=== PATIENT | male | born 1975 | race Caucasian/White ===

== ENCOUNTER 2019-04-18 01:24 | Emergency (ER) | payer SELFPAY ==
[~2019-04-18] VITALS: Ht 182 cm; Wt 90.9 kg
[~2019-04-18 01:24] MED LIST: DIAZ-345 PO; DIAZ5SOL3 PO; HUM100VI6 SQ; HYDR-2890 PO; HYDR-2997 PO; INSASP10V SQ; INSU100I14 SQ; INSU100I16 SQ; TRAZ150T42 PO
[2019-04-18] MEDS ORDERED: RT-ALBUTEROL/IPRATROPIUM 3 ML (DUONEB) VIAL ONE (01:25)
[2019-04-18] MEDS ORDERED: RT-ALBUTEROL SULF 2.5 MG/3 ML PRE-MIX VIAL ONE (01:29)
[2019-04-18] MEDS ORDERED: RT-ALBUTEROL SULF 2.5 MG/3 ML PRE-MIX VIAL INH STA (01:32)
[2019-04-18] MEDS ORDERED: LACTATED RINGERS 1,000 ML IV STA (01:33)
[2019-04-18] MEDS ORDERED: RT-IPRATROPIUM (ATROVENT) 0.5MG/2.5ML AMP IH ONE (01:45)
--- NOTE | 2019-04-18 01:49 | ED Respiratory ---
General Chief Complaint: Respiratory Problems Stated Complaint: SOB,WHEEZING Source: patient, family Exam Limitations: no limitations History of Present Illness Date Seen by Provider: Apr 18, 2019 Time Seen by Provider: 01:27 Initial Comments Here with report of shortness of breath and wheezing. Does have asthma and is out of his inhaler. He is trying to get his prescription refilled for the past 2 weeks and that has not been refilled yet. He denies fever or chills. Does have diabetes and states blood sugars running in the 200s. Denies nausea, vomiting or diarrhea. Timing/Duration: week, getting worse Severity: moderate Prior Episodes/Possible Cause: occasional episodes Modifying Factors: Improves With Rest Associated Symptoms: cough; No fever/chills, No muscle aches, No nasal congestion, No nasal drainage; shortness of breath; No sore throat; wheezing Allergies and Home Medications Allergies Coded Allergies: ibuprofen (Unverified Adverse Reaction, Mild, NAUSEA, 06/11/12) Home Medications Diazepam 5 Mg Tablet, 5 MG PO BID, (Reported) Hydrocodone Bit/Acetaminophen 1 Each Tablet, 1 EACH PO Q8H Prescribed by: LEI LEE on 03/16/13 1524 Insulin Aspart 100 Unit/1 Ml Insuln.pen, 13 UNIT SQ BID, (Reported) Insulin Detemir 100 Unit/1 Ml Insuln.pen, 13 UNIT SQ BID, (Reported) Prednisone 20 Mg Tab, 40 MG PO DAILY Prescribed by: JIN LEVY on 04/18/19 0233 Trazodone Hcl 150 Mg Tablet, 50 MG PO HS, (Reported) Patient Home Medication List Home Medication List Reviewed: Yes Review of Systems Review of Systems Constitutional: see HPI; No chills, No fever EENTM: no symptoms reported Respiratory: see HPI, short of breath, wheezing Cardiovascular: no symptoms reported Gastrointestinal: no symptoms reported Genitourinary: no symptoms reported Psychiatric/Neurological: No Symptoms Reported Past Ysgiliq-Keagil-Iuzxii Hx Past Med/Social Hx: Reviewed Nursing Past Med/Soc Hx Patient Social History Recent Foreign Travel: No Contact w/Someone Who Travel: No Immunizations Up To Date Tetanus Booster (TDap): Less than 5yrs Date of Influenza Vaccine: Dec 29, 2012 Seasonal Allergies Seasonal Allergies: Yes Past Medical History Surgeries: No Respiratory: Yes Asthma Cardiac: No Neurological: No Reproductive Disorders: No Sexually Transmitted Disease: No HIV/AIDS: No Genitourinary: No Gastrointestinal: No Musculoskeletal: Yes Fractures Endocrine: Yes Diabetes, Insulin dep Psychosocial: Yes Anxiety Adverse Reaction/Blood Tranf: No Family Medical History Reviewed and Corrections made Physical Exam Vital Signs - First Documented 04/18/19 04/18/19 01:26 01:42 Temp 36.5 Pulse 117 Resp 22 B/P (MAP) 151/106 (121) Pulse Ox 96 O2 Delivery Room Air Capillary Refill : Height: '" Weight: 180lbs. oz. 81.370738pl; BMI Method:Stated General Appearance: WD/WN, moderate distress HEENT: PERRL/EOMI, TMs normal, pharynx normal Neck: full range of motion, supple Respiratory: decreased breath sounds, accessory muscle use, wheezing, expiration Cardiovascular: no murmur, tachycardia Gastrointestinal: non tender, soft Extremities: non-tender, normal inspection Neurologic/Psychiatric: alert, oriented x 3 Skin: normal color, warm/dry Progress/Results/Core Measures Suspected Sepsis SIRS Temperature: Pulse: Respiratory Rate: Laboratory Tests 04/18/19 01:45: White Blood Count 8.5 Blood Pressure / Mean: Laboratory Tests 04/18/19 01:45: Creatinine 0.81, Platelet Count 202, Total Bilirubin 0.3 Results/Orders Lab Results Laboratory Tests Test 04/18/19 01:45 Range/Units White Blood Count 8.5 4.3-11.0 10^3/uL Red Blood Count 4.66 4.35-5.85 10^6/uL Hemoglobin 16.2 13.3-17.7 G/DL Hematocrit 45 40-54 % Mean Corpuscular Volume 97 80-99 FL Mean Corpuscular Hemoglobin 35 H 25-34 PG Mean Corpuscular Hemoglobin Concent 36 32-36 G/DL Red Cell Distribution Width 12.1 10.0-14.5 % Platelet Count 202 130-400 10^3/uL Mean Platelet Volume 10.8 H 7.4-10.4 FL Neutrophils (%) (Auto) 39 L 42-75 % Lymphocytes (%) (Auto) 46 H 12-44 % Monocytes (%) (Auto) 6 0-12 % Eosinophils (%) (Auto) 8 0-10 % Basophils (%) (Auto) 1 0-10 % Neutrophils # (Auto) 3.3 1.8-7.8 X 10^3 Lymphocytes # (Auto) 3.9 1.0-4.0 X 10^3 Monocytes # (Auto) 0.5 0.0-1.0 X 10^3 Eosinophils # (Auto) 0.7 H 0.0-0.3 10^3/uL Basophils # (Auto) 0.1 0.0-0.1 10^3/uL Sodium Level 137 135-145 MMOL/L Potassium Level 4.3 3.6-5.0 MMOL/L Chloride Level 103 98-107 MMOL/L Carbon Dioxide Level 20 L 21-32 MMOL/L Anion Gap 14 5-14 MMOL/L Blood Urea Nitrogen 9 7-18 MG/DL Creatinine 0.81 0.60-1.30 MG/DL Estimat Glomerular Filtration Rate > 60 BUN/Creatinine Ratio 11 Glucose Level 140 H 70-105 MG/DL Calcium Level 8.9 8.5-10.1 MG/DL Corrected Calcium 9.1 8.5-10.1 MG/DL Total Bilirubin 0.3 0.1-1.0 MG/DL Aspartate Amino Transf (AST/SGOT) 83 H 5-34 U/L Alanine Aminotransferase (ALT/SGPT) 53 0-55 U/L Alkaline Phosphatase 139 H 40-136 U/L C-Reactive Protein High Sensitivity 0.03 0.00-0.50 MG/DL Total Protein 6.5 6.4-8.2 GM/DL Albumin 3.7 3.2-4.5 GM/DL Micro Results Microbiology 04/18/19 Influenza Types A,B Antigen (TACHO) - Final, Complete My Orders Orders - JIN LEVY MD Albuterol/Ipra Inhalation Soln (Duoneb I (04/18/19 01:25) Albuterol Pre-Mix Nebs (Rt) (Proventil (04/18/19 01:32) Ipratropium 0.02% Neb Solution (Atrovent (04/18/19 01:45) Svn Small Volume Nebulizer (04/18/19 01:32) Svn Small Volume Nebulizer (04/18/19 01:32) Cbc With Automated Diff (04/18/19 01:33) Comprehensive Metabolic Panel (04/18/19 01:33) Hs C Reactive Protein (04/18/19 01:33) Influenza A And B Antigens (04/18/19 01:33) Lactated Ringers (Lr 1000 Ml Iv Solution (04/18/19 01:33) Ed Iv/Invasive Line Start (04/18/19 01:33) Albuterol Pre-Mix Nebs (Rt) (Proventil (04/18/19 01:29) Chest Pa/Lat (2 View) (04/18/19 02:06) Prednisone Tablet (Deltasone Tablet) (04/18/19 02:30) Rx-Albuterol Inhaler (Rx-Proair) (04/18/19 02:30) Oseltamivir 75 Mg Capsule (Tamiflu 75 (04/18/19 03:00) Medications Given in ED Current Medications Medications Dose Ordered Sig/[place] Route Start Time Stop Time Status Last Admin Dose Admin Albuterol Sulfate 2 PUFFS QID PRN IH 04/18/19 02:30 04/18/19 02:37 8.5 GM Albuterol Sulfate 2.5 mg STK-MED ONCE .ROUTE 04/18/19 01:29 04/18/19 01:34 DC 04/18/19 01:41 7.5 MG Albuterol/ Ipratropium 3 ml STK-MED ONCE .ROUTE 04/18/19 01:25 04/18/19 01:30 DC 04/18/19 01:37 3 ML Prednisone 40 mg ONCE ONCE PO 04/18/19 02:30 04/18/19 02:31 DC 04/18/19 02:37 40 MG Vital Signs/I&O 04/18/19 04/18/19 04/18/19 01:26 01:42 02:53 Temp 36.5 36.5 Pulse 117 91 Resp 22 18 B/P (MAP) 151/106 (121) 141/87 (121) Pulse Ox 96 94 O2 Delivery Room Air Room Air Room Air Capillary Refill : Progress Note : Progress Note Seen and evaluated. IV, labs, influenza screen, DuoNeb and albuterol nebulizer treatment 3 ordered. LR 1 L bolus. Monitor patient. Overall doing better. 0225: CT chest x-ray done. Does appear to have some atelectasis. No laboratory indication of pneumonia. Overall much better and feels comfortable going home. Prednisone 40 mg by mouth and albuterol inhaler given. Discharged home with return precautions. Patient verbalize understanding instructions and agreement with plan. Patient was found to have influenza A. Tamiflu 75 mg by mouth given. Discharged home and prescription given. Diagnostic Imaging Diagonstic Imaging: Xray Plain Films/CT/US/NM/MRI: chest Comments Left basilar atelectasis Departure Impression Primary Impression: Acute asthma exacerbation Qualified Codes: J45.41 - Moderate persistent asthma with (acute) exacerbation Disposition: HOME, SELF-CARE Condition: Improved Departure-Patient Inst. Decision time for Depature: 02:29 Referrals: TISHA BEAUCHAMP MD (PCP/Family) Primary Care Physician Patient Instructions: Asthma, Adult (DC) Add. Discharge Instructions: All discharge instructions reviewed with patient and/or family. Voiced understanding. Take medications as directed. Follow-up with your Dr. in 2-3 days for recheck and further evaluation. Return for worse pain, fever, vomiting, weakness, breathing problems or other concerns as needed. Scripts Oseltamivir Phosphate (Oseltamivir Phosphate) 75 Mg Capsule 75 MG PO BID for 5 Days, #9 CAP 0 Refills Prov: JIN LEVY MD 04/18/19 Prednisone (Prednisone) 20 Mg Tab 40 MG PO DAILY, #6 TAB 0 Refills Prov: JIN LEVY MD 04/18/19 JIN LEVY MD Apr 18, 2019 01:49
[2019-04-18 02:00] LABS: BASOPHILS # (AUTO) 0.1 10^3/uL (0.0-0.1); BASOPHILS % (AUTO) 1 % (0-10); EOSINOPHILS # (AUTO) 0.7 10^3/uL (0.0-0.3); EOSINOPHILS % (AUTO) 8 % (0-10); HEMATOCRIT 45 % (40-54); HEMOGLOBIN 16.2 G/DL (13.3-17.7); LYMPHOCYTES # (AUTO) 3.9 X 10^3 (1.0-4.0); LYMPHOCYTES % (AUTO) 46 % (12-44); MEAN CORPUSCULAR HEMOGLOBIN 35 PG (25-34); MEAN CORPUSCULAR HGB CONC 36 G/DL (32-36); MEAN CORPUSCULAR VOLUME 97 FL (80-99); MEAN PLATELET VOLUME 10.8 FL (7.4-10.4); MONOCYTES # (AUTO) 0.5 X 10^3 (0.0-1.0); MONOCYTES % (AUTO) 6 % (0-12); NEUTROPHILS # (AUTO) 3.3 X 10^3 (1.8-7.8); NEUTROPHILS % (AUTO) 39 % (42-75); PLATELET COUNT 202 10^3/uL (130-400); RED CELL DISTRIBUTION WIDTH 12.1 % (10.0-14.5); WHITE BLOOD COUNT 8.5 10^3/uL (4.3-11.0)
[2019-04-18 02:15] LABS: ALANINE AMINOTRANSFERASE 53 U/L (0-55); ALBUMIN 3.7 GM/DL (3.2-4.5); ALKALINE PHOSPHATASE 139 U/L (40-136); BILIRUBIN,TOTAL 0.3 MG/DL (0.1-1.0); BUN/CREATININE RATIO 11; CALCIUM 8.9 MG/DL (8.5-10.1); CARBON DIOXIDE 20 MMOL/L (21-32); CHLORIDE 103 MMOL/L (98-107); CREATININE SERUM 0.81 MG/DL (0.60-1.30); GFR ESTIMATED > 60; GLUCOSE 140 MG/DL (70-105); POTASSIUM 4.3 MMOL/L (3.6-5.0); SODIUM 137 MMOL/L (135-145); TOTAL PROTEIN 6.5 GM/DL (6.4-8.2)
[2019-04-18] MEDS ORDERED: predniSONE 20 MG TAB PO ONE (02:30)
[2019-04-18] MEDS ORDERED: RX-ALBUTEROL INHALER (PROAIR) 8.5 GM IH PRN (02:30)
[2019-04-18] MEDS ORDERED: PRD20T PO (02:33)
[2019-04-18 02:53] VITALS: BP 141/87
[2019-04-18] MEDS ORDERED: OSELTAMIVIR 75 MG (TAMIFLU) CAPSULE PO ONE (03:00)
[2019-04-18] MEDS ORDERED: OSEL75CA15 PO (03:01)
--- NOTE | 2019-04-18 07:01 | Diagnostic Imaging Report ---
CHEST PA/LAT (2 VIEW) Indication: Cough Comparison: None available. Findings: Lingular linear opacities are noted. No consolidation. No pleural effusion or pneumothorax. Normal heart size and mediastinal contours. Impression: Lingular subsegmental atelectasis. No consolidation that would confirm pneumonia. Dictated by: Dictated on workstation # [id number]
== END 2019-04-18 03:05 | disposition home or self-care (01) ==
LOC: EDUNIT# 01:24 → ER 01:25
DX: J45.901 Unspecified asthma with (acute) exacerbation (principal); E11.9 Type 2 diabetes mellitus without complications; J45.909 Unspecified asthma, uncomplicated; F41.9 Anxiety disorder, unspecified; Z88.6 Allergy status to analgesic agent; Z79.4 Long term (current) use of insulin
CPT/HCPCS: 36415; 71046; 80053; 85025; 86141; 87804; 94640; 96360